=== PATIENT | female | born 1960 | race African-American/Black ===

== ENCOUNTER 2016-10-22 19:03 | Emergency (ER) | payer BC ==
[2016-10-22 19:36] VITALS: BP 150/80; PULSE 72; TEMP 98.5; BMI 30.8
[2016-10-22] MEDS ORDERED: SODIUM CHLORIDE 1,000 ML IV STA (20:43)
[2016-10-22] MEDS ORDERED: ONDANSETRON 4 MG/2 ML VIAL IVPUSH ONE (21:14)
[2016-10-22] MEDS ORDERED: morphine CARPU-JECT 4 MG/1 ML DISP.SYRIN IVPUSH ONE (21:14)
[2016-10-22] MEDS ORDERED: PANTOPRAZOLE SODIUM 40 MG in SODIUM CHLORIDE 100 ML IVPB ONE (21:19)
--- NOTE | 2016-10-22 21:22 | PDOC ---
History of Present Illness - General Chief Complaint: Pain, Acute Stated Complaint: ABD PAIN/RECTAL BLEEDING Time Seen by Provider: 10/22/16 20:41 History Source: Patient Exam Limitations: No Limitations - History of Present Illness Travel History: No Initial Comments: 10/22/16 21:16 56yo Female patient presents to ED c/o abd pain which began yesterday. Patient reports she ate trail mix the night before her symptoms began. Patient describes the pain coming in waves every 20 mins with stabbing pains. Patient reports black stool x 1 yesterday. Poor Appetite: last attempted meal yesterday evening. She also states she took pepto bismul with no relief. Denies n/v/d CP, Back pain, fever, cough, diff breathing, dysuria, hematuria, or any other complaints at this time. LNMP: Post Menopausal. Past History - Past Medical History Allergies/Adverse Reactions: Allergies Allergy/AdvReac Type Severity Reaction Status Date / Time No Known Drug Allergies Allergy Verified 04/13/14 08:47 Home Medications: Ambulatory Orders Lisinopril/Hydrochlorothiazide [Lisinopril-Hctz 20-25 mg Tab] 1 each PO DAILY Simvastatin [Zocor -] 40 mg PO DAILY 11/18/12 Methimazole [Tapazole] 5 mg PO DAILY 04/13/14 Ciprofloxacin [Cipro (Restricted To Id)] 500 mg PO Q12H #28 tablet 10/23/16 Metronidazole [Flagyl -] 500 mg PO DAILY #28 tablet 10/23/16 Ondansetron [Zofran Odt -] 4 mg SL Q6H PRN #24 od.tablet 10/23/16 Oxycodone HCl/Acetaminophen [Percocet 5-325 mg Tablet] 1 - 2 tab PO Q6H PRN #20 tab MDD 5 tablets 10/23/16 Anemia: No Asthma: No Cancer: No Cardiac Disorders: No CVA: No COPD: No CHF: No Dementia: No Diabetes: No GI Disorders: No Disorders: No HTN: Yes Hypercholesterolemia: Yes Liver Disease: No Seizures: No Thyroid Disease: Yes - Surgical History Appendectomy: Yes - Psycho/Social/Smoking Cessation Hx Anxiety: No Suicidal Ideation: No Smoking Status: No Smoking History: Current some day smoker Number of Cigarettes Smoked Daily: 0 Information on smoking cessation initiated: No Hx Alcohol Use: No Drug/Substance Use Hx: Yes Substance Use Type: Marijuana Hx Substance Use Treatment: Yes (2x a week) *Physical Exam - Vital Signs Last Vital Signs Temp Pulse Resp BP Pulse Ox 98.5 F 72 18 150/80 100 10/22/16 19:33 10/22/16 19:33 10/22/16 19:33 10/22/16 19:33 10/22/16 19:33 ED Treatment Course - LABORATORY CBC & Chemistry Diagram: 10/22/16 21:40 10/22/16 21:40 - RADIOLOGY Radiology Studies Ordered: Category Date Time Status GALLBLADDER US [US] Stat Ultrasound 10/22/16 21:13 Ordered *DC/Admit/Observation/Transfer Diagnosis at time of Disposition: Colitis - Discharge Dispostion Disposition: HOME Condition at time of disposition: Stable Admit: No - Prescriptions Prescriptions: Ciprofloxacin [Cipro (Restricted To Id)] 500 mg PO Q12H #28 tablet Metronidazole [Flagyl -] 500 mg PO DAILY #28 tablet Oxycodone HCl/Acetaminophen [Percocet 5-325 mg Tablet] 1 - 2 tab PO Q6H PRN #20 tab MDD 5 tablets PRN Reason: Severe Pain Ondansetron [Zofran Odt -] 4 mg SL Q6H PRN #24 od.tablet PRN Reason: Nausea - Referrals Referrals: Waldemar Werner MD [Primary Care Provider] - Florentin Castorena MD [Staff Physician] - - Patient Instructions Printed Discharge Instructions: DI for Colitis Additional Instructions: FOLLOW UP WITH DR. CASTORENA (GI SPECIALIST) REGARDING YOUR VISIT TODAY. CALL TO SCHEDULE APPOINTMENT. TAKE MEDICATIONS PRESCRIBED. DO NOT DRIVE, DRINK ALCOHOL, OR OPERATE HEAVY MACHINERY WHILE TAKING PERCOCET. AVOID ALCOHOL, SPICY FOODS, FOODS WITH SEEDS OR ANY NUTS X 2 WEEKS. RETURN IF YOUR SYMPTOMS WORSEN OR ANY CONCERNS FOR FURTHER EVALUATION. Print Language: JAMA[place]
[2016-10-22] MEDS ORDERED: ONDANSETRON 4 MG/2 ML VIAL ONE (21:47)
[2016-10-22] MEDS ORDERED: morphine CARPU-JECT 4 MG/1 ML DISP.SYRIN ONE (21:47)
[2016-10-22] MEDS ORDERED: PANTOPRAZOLE SODIUM 100 ML IVPB ONE (21:47)
[2016-10-22 21:57] LABS: BASOPHIL 0.5 % (0-2.0); EOSINOPHIL 1.5 % (0-4.5); MCH 31.1 pg (25.7-33.7); MCHC 32.4 g/dl (32.0-36.0); MEAN CELL VOLUME 96.2 fl (80-96); MEAN PLT VOLUME 8.5 fl (7.5-11.1); NEUTROPHILS 68.7 % (42.8-82.8); PLATELET COUNT 253 K/MM3 (134-434); RDW 13.1 % (11.6-15.6); WHITE BLOOD COUNT 13.6 K/mm3 (4.0-10.0)
[2016-10-22 22:29] LABS: ALBUMIN 4.1 g/dl (3.4-5.0); ALK PHOS 72 U/L (45-117); AMYLASE 79 U/L (25-115); ANION GAP 5 (8-16); BILIRUBIN,TOTAL 0.5 mg/dL (0.2-1.0); CALCIUM 9.4 mg/dL (8.5-10.1); CO2 30 mmol/L (21-32); CREATININE 0.9 mg/dL (0.55-1.02); GLUCOSE,RANDOM 88 mg/dL (74-106); SGOT/AST 18 U/L (15-37); SGPT/ALT 24 U/L (12-78); TOT PROT 8.1 g/dl (6.4-8.2)
[2016-10-23] MEDS ORDERED: METRONIDAZOLE 500 MG PREMIXED 100 ML IVPB ONE ×2 (01:30→01:39)
[2016-10-23] MEDS ORDERED: CIPROFLOXACIN 400 MG/D5W 200 ML IVPB ONE (01:30)
[2016-10-23] MEDS ORDERED: OXYCODONE/APAP 5/325MG COMBO TABLET PO ONE (03:31)
[2016-10-23] MEDS ORDERED: traMADol HCL 50 MG TABLET PO ONE (03:53)
[2016-10-23] MEDS ORDERED: traMADol HCL 50 MG TABLET ONE (03:55)
[2016-10-23 09:59] LABS: BILIRUBIN,DIRECT 0.1 mg/dL (0.0-0.2)
== END 2016-10-23 04:12 | disposition home or self-care (01) ==
LOC: JER 19:03
PROC: 3E0337Z Introduction of Electrolytic and Water Balance Substance into Peripheral Vein, Percutaneous Approach (ICD-10-PCS; principal; 2016-10-22)
PROC: 3E033GC Introduction of Other Therapeutic Substance into Peripheral Vein, Percutaneous Approach (ICD-10-PCS; 2016-10-22)
PROC: 3E03329 Introduction of Other Anti-infective into Peripheral Vein, Percutaneous Approach (ICD-10-PCS; 2016-10-22)
PROC: 3E033NZ Introduction of Analgesics, Hypnotics, Sedatives into Peripheral Vein, Percutaneous Approach (ICD-10-PCS; 2016-10-22)
PROC: 3E063GC Introduction of Other Therapeutic Substance into Central Artery, Percutaneous Approach (ICD-10-PCS; 2016-10-22)
DX: K52.89 Other specified noninfective gastroenteritis and colitis (principal); I10 Essential (primary) hypertension; E78.00 Pure hypercholesterolemia, unspecified; E07.9 Disorder of thyroid, unspecified
CPT/HCPCS: 36415; 74177-TC; 76705-TC; 80053; 80076; 82150; 82272; 83690; 85025; 86850; 86900; 86901; 99283-25

== ENCOUNTER → 2021-10-23 | Day surgery (SDC) | payer BC ==
[2021-10-23 10:18] LABS: EPI CELLS 5 /uL (0-25.1); HYALINE CASTS 1 /uL (0-3.1); URINE APPEARANCE CLEAR; URINE BACTERIA 272 /uL (0-1359); URINE BILIRUBIN NEGATIVE (NEGATIVE); URINE COLOR YELLOW; URINE GLUCOSE (UA) NEGATIVE (NEGATIVE); URINE KETONE NEGATIVE (NEGATIVE); URINE LEUK ESTERASE NEGATIVE (NEGATIVE); URINE NITRITE NEGATIVE (NEGATIVE); URINE PROTEIN 1+ (NEGATIVE); URINE RBC 6 /uL (0-23.9); URINE UROBILINOGEN 0.2 mg/dL (0.2-1.0); URINE WBC 4 /uL (0-25.8)
[2021-10-23 10:22] LABS: EOS % 1.1 % (0-4.5); HEMATOCRIT 37.9 % (32.4-45.2); HEMOGLOBIN 12.3 GM/dL (10.7-15.3); LYMPH % 18.7 % (8-40); MCH 31.6 pg (25.7-33.7); MCHC 32.5 g/dl (32.0-36.0); MEAN PLT VOLUME 8.6 fl (7.5-11.1); MONO % 6.6 % (3.8-10.2); NEUT % 72.6 % (42.8-82.8); PLATELET COUNT 245 10^3/uL (134-434); RBC 3.91 M/mm3 (3.60-5.2); RDW 12.9 % (11.6-15.6); WHITE BLOOD COUNT 6.7 K/mm3 (4.0-10.0)
[2021-10-23 10:51] LABS: BLOOD UREA NITROGEN 21.1 mg/dL (7-18); CALCIUM 9.4 mg/dL (8.5-10.1)
[2021-10-23 10:52] LABS: ALBUMIN 3.4 g/dl (3.4-5.0)
[2021-10-23 10:56] LABS: BILIRUBIN,TOTAL 0.4 mg/dL (0.2-1); TOT PROT 7.5 g/dl (6.4-8.2)
== END | disposition home or self-care (01) ==
LOC: JRADIR 09:00
PROVIDERS: ATTEND Internal Medicine Endocrinology, Diabetes & Metabolism
PROC: 0G9K3ZX Drainage of Thyroid Gland, Percutaneous Approach, Diagnostic (ICD-10-PCS; principal; 2021-10-23)
DX: E04.1 Nontoxic single thyroid nodule (principal)
CPT/HCPCS: 36415; 76942; 80053; 80061; 81003; 82306; 82550; 83036; 84439; 84443; 84481; 85025; 88173; 88305-TC

== ENCOUNTER 2024-09-10 04:19 | Day surgery (SDC) | payer MEDICARE, OTHER ==
[2024-09-09 15:52] VITALS: BMI 31.6
[2024-09-10 09:53] LABS: BASO % 0.1 % (0-2.0); HEMATOCRIT 43.2 % (32.4-45.2); LYMPH % 6.4 % (8-40); MCH 30.6 pg (25.7-33.7); MCHC 32.4 g/dl (32.0-36.0); MEAN CELL VOLUME 94.3 fl (80-96); MEAN PLT VOLUME 8.4 fl (7.5-11.1); MONO % 5.8 % (3.8-10.2); NEUT % 87.7 % (42.8-82.8); PLATELET COUNT 271 10^3/uL (134-434); RBC 4.58 M/mm3 (3.60-5.2); RDW 12.7 % (11.6-15.6)
[2024-09-10 09:55] LABS: INR 0.97 (0.83-1.09)
[2024-09-10 10:35] VITALS: RESP 18
[2024-09-10 11:48] VITALS: PULSE 90
[2024-09-10 13:20] VITALS: BP 199/77; TEMP 97.4
== END 2024-09-10 15:47 | disposition home or self-care (01) ==
LOC: JRADIR 04:19
PROVIDERS: ATTEND Internal Medicine
DX: Z53.8 Procedure and treatment not carried out for other reasons (principal)
CPT/HCPCS: 36415; 85025; 85610

== ENCOUNTER 2024-09-10 13:48 | Observation (INO) | payer MEDICARE, OTHER ==
[2024-09-10 15:13] LABS: BASO % 0.3 % (0-2.0); HEMATOCRIT 44.2 % (32.4-45.2); HEMOGLOBIN 14.4 GM/dL (10.7-15.3); LYMPH % 6.5 % (8-40); MCHC 32.6 g/dl (32.0-36.0); MEAN CELL VOLUME 94.9 fl (80-96); MEAN PLT VOLUME 8.4 fl (7.5-11.1); MONO % 5.2 % (3.8-10.2); PLATELET COUNT 263 10^3/uL (134-434); RBC 4.66 M/mm3 (3.60-5.2); RDW 12.8 % (11.6-15.6); WHITE BLOOD COUNT 18.4 K/mm3 (4.0-10.0)
[2024-09-10 15:31] LABS: CHLORIDE 94 mmol/L (98-107); SODIUM 127 mmol/L (136-145)
[2024-09-10 15:32] LABS: ALBUMIN 3.4 g/dl (3.4-5.0); BLOOD UREA NITROGEN 27.9 mg/dL (7-18); CALCIUM 9.4 mg/dL (8.5-10.1); CO2 29 mmol/L (21-32)
[2024-09-10 15:35] LABS: SGOT/AST 85 U/L (15-37)
[2024-09-10 15:36] LABS: ANION GAP 4 mmol/L (4-13); CREATININE 1.3 mg/dL (0.55-1.3); GLUCOSE,RANDOM 452 mg/dL (74-106); POTASSIUM 9.4 mmol/L (3.5-5.1); SGPT/ALT 30 U/L (13-61)
[2024-09-10 15:37] LABS: BILIRUBIN,TOTAL 0.6 mg/dL (0.2-1); TOT PROT 8.2 g/dl (6.4-8.2)
[2024-09-10 15:38] LABS: ALK PHOS 72 U/L (45-117)
[2024-09-10 16:30] LABS: VENOUS BASE EXCESS 5.4 mmol/L (-2-2); VENOUS O2 SATURATION 69.1 % (70-80); VENOUS PCO2 49.2 mmHg (38-52); VENOUS PH 7.419 (7.310-7.410)
[2024-09-10] MEDS: SODIUM CHLORIDE 1,000 ML IV STA (16:50)
[2024-09-10 16:55] LABS: CHLORIDE 93 mmol/L (98-107); POTASSIUM 5.7 mmol/L (3.5-5.1); SODIUM 133 mmol/L (136-145)
[2024-09-10 16:57] LABS: CALCIUM 9.6 mg/dL (8.5-10.1)
[2024-09-10 16:58] LABS: ALBUMIN 3.4 g/dl (3.4-5.0); ANION GAP 9 mmol/L (4-13); BLOOD UREA NITROGEN 29.4 mg/dL (7-18); CO2 31 mmol/L (21-32)
[2024-09-10 17:01] LABS: CREATININE 1.4 mg/dL (0.55-1.3); SGOT/AST 27 U/L (15-37); SGPT/ALT 28 U/L (13-61)
[2024-09-10 17:02] LABS: BILIRUBIN,TOTAL 0.6 mg/dL (0.2-1); TOT PROT 7.6 g/dl (6.4-8.2)
[2024-09-10 17:04] LABS: ALK PHOS 72 U/L (45-117)
[2024-09-10 17:05] LABS: GLUCOSE,RANDOM 490 mg/dL (74-106)
[2024-09-10] MEDS ORDERED: INSULIN REGULAR HUMAN 100 UNITS/ML *VIAL ONE (17:28)
[2024-09-10] MEDS: INSULIN REGULAR HUMAN 100 UNITS/ML *VIAL IVPUSH ONE (17:37)
[2024-09-10] MEDS ORDERED: ALBUTEROL SO4 HFA INHALER IH PRN (17:41)
[2024-09-10 18:25] LABS: EPI CELLS 35 /uL (0-25.1); HYALINE CASTS 0 /uL (0-3.1); PH,URINE 6.5 (5.0-8.0); URINE APPEARANCE CLEAR; URINE BACTERIA 2583 /uL (0-1359); URINE BILIRUBIN NEGATIVE (NEGATIVE); URINE COLOR YELLOW; URINE GLUCOSE (UA) 3+ (NEGATIVE); URINE KETONE NEGATIVE (NEGATIVE); URINE LEUK ESTERASE NEGATIVE (NEGATIVE); URINE NITRITE NEGATIVE (NEGATIVE); URINE PROTEIN 2+ (NEGATIVE); URINE RBC 33 /uL (0-23.9); URINE UROBILINOGEN 0.2 mg/dL (0.2-1.0)
[2024-09-10 18:39] LABS: CHLORIDE 94 mmol/L (98-107); SODIUM 134 mmol/L (136-145)
[2024-09-10 18:42] LABS: ANION GAP 9 mmol/L (4-13); BLOOD UREA NITROGEN 29.4 mg/dL (7-18); CALCIUM 9.8 mg/dL (8.5-10.1); CO2 32 mmol/L (21-32)
[2024-09-10 18:45] LABS: GLUCOSE,RANDOM 442 mg/dL (74-106)
[2024-09-10 18:46] LABS: CREATININE 1.6 mg/dL (0.55-1.3)
[2024-09-10] MEDS: SODIUM CHLORIDE 0.45% 1,000 ML IV SCH (19:39)
[2024-09-10] MEDS: INSULIN (LEVEMIR) 100 UNITS/ML UNITS SQ SCH (21:14)
[2024-09-10] MEDS: ROSUVASTATIN CA 20 MG TABLET PO SCH (21:14)
[2024-09-10] MEDS: predniSONE 20 MG TABLET (UD) PO SCH (21:14)
[2024-09-10 22:52] LABS: URINE WBC 68.3 /uL (0-25.8)
[2024-09-10] MEDS ORDERED: CEFTRIAXONE 1 G/50 ML PREMIX 50 ML IVPB ONE (22:54)
[2024-09-11] MEDS: CEFTRIAXONE 1 G/50 ML PREMIX 50 ML IVPB ONE (03:28)
[2024-09-11] MEDS: INSULIN ASPART SLIDING SCALE (NOVOLOG) 1 VIAL SQ SCH (06:22)
[2024-09-11] MEDS ORDERED: INSULIN ASPART SLIDING SCALE (NOVOLOG) 1 VIAL SQ SCH (07:00)
[2024-09-11] MEDS ORDERED: INSULIN (NOVOLOG) ASPART 100 UNITS/ML 10ML VIAL SQ SCH (07:00)
[2024-09-11] MEDS: ACETAMINOPHEN 1000 MG/100 ML BAG IVPB ONE (07:08)
[2024-09-11] MEDS: NIFEdipine E.R. 90 MG TABLET PO ONE (07:09)
[2024-09-11 07:15] LABS: BASO % 0.1 % (0-2.0); HEMATOCRIT 41.7 % (32.4-45.2); HEMOGLOBIN 13.7 GM/dL (10.7-15.3); LYMPH % 7.6 % (8-40); MCH 30.9 pg (25.7-33.7); MCHC 32.8 g/dl (32.0-36.0); MEAN CELL VOLUME 94.2 fl (80-96); MEAN PLT VOLUME 8.4 fl (7.5-11.1); MONO % 4.1 % (3.8-10.2); NEUT % 88.2 % (42.8-82.8); PLATELET COUNT 229 10^3/uL (134-434); RBC 4.43 M/mm3 (3.60-5.2); RDW 12.9 % (11.6-15.6); WHITE BLOOD COUNT 13.7 K/mm3 (4.0-10.0)
[2024-09-11 07:22] LABS: POTASSIUM 4.6 mmol/L (3.5-5.1)
[2024-09-11 07:29] LABS: CALCIUM 8.5 mg/dL (8.5-10.1)
[2024-09-11 07:30] LABS: CREATININE 1.1 mg/dL (0.55-1.3)
[2024-09-11 07:32] LABS: BILIRUBIN,TOTAL 0.4 mg/dL (0.2-1); TOT PROT 6.5 g/dl (6.4-8.2)
[2024-09-11] MEDS ORDERED: ASPIRIN COATED 81 MG TABLET.EC PO SCH (10:00)
[2024-09-11] MEDS ORDERED: NIFEdipine E.R. 90 MG TABLET PO SCH (10:00)
[2024-09-11] MEDS: SODIUM CHLORIDE 0.45% 1,000 ML IV SCH (10:34)
[2024-09-11] MEDS: CEFTRIAXONE 1 G/50 ML PREMIX 50 ML IVPB SCH (10:35)
[2024-09-11] MEDS: METHIMAZOLE 5 MG TABLET PO SCH (10:35)
[2024-09-11] MEDS: predniSONE 20 MG TABLET (UD) PO SCH (10:35)
[2024-09-11] MEDS: LISINOPRIL 20 MG TABLET PO SCH (10:36)
[2024-09-11] MEDS: PANTOPRAZOLE 40 MG TABLET PO SCH (10:36)
[2024-09-11] MEDS: hydrALAZINE HCL 10 MG TABLET PO SCH (14:57)
[2024-09-11] MEDS: INSULIN (LEVEMIR) 100 UNITS/ML UNITS SQ SCH (21:44)
[2024-09-12] MEDS: NIFEdipine E.R. 90 MG TABLET PO SCH (09:23)
[2024-09-12] MEDS: ACETAMINOPHEN 325 MG TABLET (FP) PO PRN (11:51)
[2024-09-12] MEDS: FLUCONAZOLE 150 MG TABLET PO ONE (13:25)
[2024-09-12] MEDS ORDERED: ALBUTEROL SO4 HFA INHALER IH PRN (14:18)
[2024-09-12] MEDS: INSULIN ASPART SLIDING SCALE (NOVOLOG) 1 VIAL SQ SCH (16:39)
[2024-09-12 21:40] VITALS: BMI 33.1
[2024-09-12] MEDS: INSULIN (LEVEMIR) 100 UNITS/ML UNITS SQ SCH (21:52)
[2024-09-12] MEDS: hydrALAZINE HCL 10 MG TABLET PO SCH (21:52)
[2024-09-12] MEDS: ROSUVASTATIN CA 20 MG TABLET PO SCH (21:52)
[2024-09-12] MEDS: BUDESONIDE/FORMETEROL FUMARATE 160/4.5 mcg INHALER IH SCH (21:53)
[2024-09-12] MEDS ORDERED: hydrALAZINE HCL 10 MG TABLET PO SCH (22:00)
[2024-09-12] MEDS ORDERED: INSULIN (LEVEMIR) 100 UNITS/ML UNITS SQ SCH (22:00)
[2024-09-13] MEDS: NIFEdipine E.R. 90 MG TABLET PO SCH (09:14)
[2024-09-13] MEDS: LISINOPRIL 20 MG TABLET PO SCH (09:14)
[2024-09-13] MEDS: METHIMAZOLE 5 MG TABLET PO SCH (09:14)
[2024-09-13] MEDS: PANTOPRAZOLE 40 MG TABLET PO SCH (09:14)
[2024-09-13] MEDS: predniSONE 20 MG TABLET (UD) PO SCH (09:15)
[2024-09-13] MEDS: CEFTRIAXONE 1 G/50 ML PREMIX 50 ML IVPB SCH (09:15)
[2024-09-13 11:53] VITALS: RESP 18
[2024-09-14 08:16] LABS: INR 0.93 (0.83-1.09); PROTHROMBIN TIME (PATIENT) 10.5 SEC (9.7-13.0)
[2024-09-14 08:36] LABS: CALCIUM 9.3 mg/dL (8.5-10.1)
[2024-09-14 08:37] LABS: ALBUMIN 3.1 g/dl (3.4-5.0); BLOOD UREA NITROGEN 28.8 mg/dL (7-18)
[2024-09-14 08:40] LABS: CREATININE 1.3 mg/dL (0.55-1.3)
[2024-09-14 08:42] LABS: BILIRUBIN,TOTAL 0.6 mg/dL (0.2-1); TOT PROT 6.6 g/dl (6.4-8.2)
[2024-09-14 09:24] LABS: BASO % 0.1 % (0-2.0); EOS % 0.1 % (0-4.5); HEMATOCRIT 42.6 % (32.4-45.2); HEMOGLOBIN 13.7 GM/dL (10.7-15.3); MCH 30.7 pg (25.7-33.7); MCHC 32.2 g/dl (32.0-36.0); MEAN CELL VOLUME 95.3 fl (80-96); MEAN PLT VOLUME 8.6 fl (7.5-11.1); MONO % 6.9 % (3.8-10.2); NEUT % 73.9 % (42.8-82.8); PLATELET COUNT 211 10^3/uL (134-434); RBC 4.47 M/mm3 (3.60-5.2); RDW 13.2 % (11.6-15.6); WHITE BLOOD COUNT 15.9 K/mm3 (4.0-10.0)
[2024-09-14] MEDS ORDERED: FENTANYL CITRATE/PF 50 MCG/ML VIAL ONE (10:58)
[2024-09-14] MEDS ORDERED: MIDAZOLAM HCL 2 MG/2 ML SINGLE DOSE VIAL ONE (10:58)
[2024-09-14] MEDS: MIDAZOLAM HCL 2 MG/2 ML SINGLE DOSE VIAL IVPB ONE (11:56)
[2024-09-14] MEDS: SODIUM CHLORIDE 500 ML IV ONE (16:31)
[2024-09-14] MEDS: INSULIN (LEVEMIR) 100 UNITS/ML UNITS SQ SCH (21:25)
[2024-09-15] MEDS: EMPAGLIFLOZIN (JARDIANCE) 10 MG TABLET PO SCH (06:26)
[2024-09-15] MEDS: ACETAMINOPHEN 325 MG TABLET (FP) PO PRN (06:57)
[2024-09-15 08:42] LABS: HEMATOCRIT 41.6 % (32.4-45.2); HEMOGLOBIN 13.1 GM/dL (10.7-15.3); MCH 30.2 pg (25.7-33.7); MCHC 31.5 g/dl (32.0-36.0); MEAN CELL VOLUME 95.8 fl (80-96); MEAN PLT VOLUME 8.6 fl (7.5-11.1); PLATELET COUNT 201 10^3/uL (134-434); RBC 4.34 M/mm3 (3.60-5.2); RDW 13.1 % (11.6-15.6); WHITE BLOOD COUNT 15.4 K/mm3 (4.0-10.0)
[2024-09-15 09:01] LABS: POTASSIUM 4.3 mmol/L (3.5-5.1)
[2024-09-15 09:06] LABS: CALCIUM 9.2 mg/dL (8.5-10.1)
[2024-09-15 09:10] LABS: CREATININE 1.1 mg/dL (0.55-1.3)
[2024-09-15 09:11] LABS: BILIRUBIN,TOTAL 0.7 mg/dL (0.2-1); TOT PROT 6.6 g/dl (6.4-8.2)
[2024-09-15 13:31] VITALS: BP 127/60; PULSE 58; TEMP 98.8
== END 2024-09-15 13:10 | disposition home or self-care (01) ==
LOC: JER 13:48 → JERBED 17:46 → J4W 19:56 → J6S 09-12 14:51
PROVIDERS: ADMIT Internal Medicine; ATTEND Internal Medicine
PROC: 3E03329 Introduction of Other Anti-infective into Peripheral Vein, Percutaneous Approach (ICD-10-PCS; principal; 2024-09-10)
PROC: 3E013VG Introduction of Insulin into Subcutaneous Tissue, Percutaneous Approach (ICD-10-PCS; 2024-09-10)
PROC: 3E033VG Introduction of Insulin into Peripheral Vein, Percutaneous Approach (ICD-10-PCS; 2024-09-10)
PROC: 3E0337Z Introduction of Electrolytic and Water Balance Substance into Peripheral Vein, Percutaneous Approach (ICD-10-PCS; 2024-09-10)
PROC: 0TB03ZX Excision of Right Kidney, Percutaneous Approach, Diagnostic (ICD-10-PCS; 2024-09-10)
DX: N18.9 Chronic kidney disease, unspecified (principal); N17.9 Acute kidney failure, unspecified; I16.0 Hypertensive urgency; R73.9 Hyperglycemia, unspecified; R73.03 Prediabetes; E07.9 Disorder of thyroid, unspecified; Z72.0 Tobacco use
CPT/HCPCS: 36415; 50200; 76942-TC; 77012-TC; 80048; 80053; 81003; 82010; 82803; 82962; 83036; 84439; 84443; 84484; 85025; 85027; 85610; 87077; 87086; 87186; 88300-TC; 88329; 93005; 93010; 96361; 96365; 96366; 96372; 96375; 99285-25; G0378; J0131